=== PATIENT | male | born 1990 | race Caucasian/White ===

== ENCOUNTER 2018-03-09 11:38 | Emergency (ER) | payer OTHER ==
[~2018-03-09] VITALS: Ht 177.8 cm; Wt 87.8 kg
[2018-03-09 11:52] VITALS: BP 143/79
[2018-03-09] MEDS ORDERED: ZYRTEC10 M2 PO (13:02)
[2018-03-09] MEDS ORDERED: CIPRODEX OTIC7.5 ML BOTH EARS (13:02)
== END 2018-03-09 13:34 | disposition home or self-care (01) ==
LOC: EME 11:38
DX: H66.91 Otitis media, unspecified, right ear (principal); J30.9 Allergic rhinitis, unspecified; Z88.2 Allergy status to sulfonamides; F17.200 Nicotine dependence, unspecified, uncomplicated
CPT/HCPCS: 99281; 99284